=== PATIENT | male | born 1980 | race Caucasian/White ===

== ENCOUNTER → 2017-04-08 06:40 | Outpatient (CLI) | payer BC, SELFPAY ==
--- NOTE | 2017-04-08 06:44 | CT_ITS ---
STUDY: CT MAXILLOFACIAL SINUSES REASON FOR EXAM: Male, 36 years old. Sinus congestion. Headaches. RADIATION DOSAGE (If Supplied By Facility): CTDIvol = ( 33.06 ) mGy, DLP = ( 902.21 ) mGycm TECHNIQUE: The patient was scanned in a multi detector CT scanner. High resolution axial imaging was performed without the administration of intravenous contrast material. Sagittal and coronal images were reconstructed. Individualized dose optimization techniques were used for this CT. COMPARISON: None. FINDINGS: There are small benign-appearing submental lymph nodes. FRONTAL SINUSES: Normal aeration, without mucosal inflammatory disease. ETHMOIDAL SINUSES: Partial opacification of the ethmoid sinuses. MAXILLARY SINUSES: Mild mucosal thickening of the maxillary sinuses bilaterally. SPHENOIDAL SINUSES: Normal aeration, without mucosal inflammatory disease. There is patency of the bilateral maxillary infundibuli with normal uncinate processes, ethmoid bullae, and hiatus semilunaris. Normal bilateral middle turbinates. Normal bilateral inferior turbinates. There is a left sided nasal septal deviation with a left sided nasal septal spur. There is patency of the bilateral nasal airways. The visualized osseous structures are normal. The visualized bilateral orbital contents are normal. CT/Sinus/Facial Bone IMPRESSION: Partial opacification of the ethmoid sinuses. Mucosal thickening of the maxillary sinuses bilaterally. Electronically Signed: Christopher Samaniego MD at 11:01 EST Tel [phone], Service support ,
== END ==
PROVIDERS: Family Provider Internal Medicine; PCP Internal Medicine; Visit Provider Otolaryngology
DX: J32.9 Chronic sinusitis, unspecified (principal)
CPT/HCPCS: 70486

== ENCOUNTER 2020-01-26 12:48 | Emergency (ER) | payer BC, SELFPAY ==
[2020-01-26 12:49] VITALS: BP 146/104; PULSE 90; RESP 19; TEMP 36.3; O2SAT 100; BMI 31.3
--- NOTE | 2020-01-26 13:05 | EKG12_ITS ---
Test Reason : CP Blood Pressure : / mmHG Vent. Rate : 079 BPM Atrial Rate : 079 BPM P-R Int : 144 ms QRS Dur : 084 ms QT Int : 372 ms P-R-T Axes : 055 029 040 degrees QTc Int : 426 ms Normal sinus rhythm Normal ECG Confirmed by DEANNE IYER, KIERSTEN ([id number]), primer expeditor and drier ALTAGRACIA AMBROSIO ([id number]) on 01/30/2020 9:05:12 AM Referred By: JEIMY Confirmed By:KIERSTEN ALICEA MD
--- NOTE | 2020-01-26 13:05 | RAD_ITS ---
EXAM DESCRIPTION: PORTABLE AP CHEST CLINICAL HISTORY: 39 years Male, CP started 2 weeks ago, SOB, cold sweats -- h/o HTN CP started 2 weeks ago, SOB, cold sweats -- h/o HTN COMPARISON: Previous chest obtained on 06/05/2016 FINDINGS: The thorax is intact. The heart and mediastinum appear to be within normal limits. The lungs appear to be well areated without evidence of pneumonic consolidation or pleural effusion. RAD/Chest 1 View (Portable) IMPRESSION: Normal portable chest. Electronically Signed: Gregory Higgins, at 13:39 EST Tel , Service support ,
--- NOTE | 2020-01-26 13:14 | ED.VISSUMM ---
- ER Visit Summary Date of Service: 01/26/20 Chief Complaint: Chest pain History of Present Illness: The patient is a [address] Alexandra. He reports he has had intermittent chest pain for months. States that it lasts hours at a time. Is a sharp pain is 5-10 at worst and is pain-free currently. This is brought on by nothing including exertion. Is also relieved by nothing including rest. Does report that he gets mildly short of breath with this. He denies any associated nausea, vomiting, or diaphoresis. There is no radiation of the pain. Patient also reports that at times he is having a burning epigastric pain and feels nauseous. This comes and goes and is not at the same time as his chest pain. Seems to be worsened by drinking water. He denies any spicy food, tomato sauce, or alcohol intolerance. Physical Examination: Vitals: Stable. Afebrile. General: Well-nourished and well-developed. Head: Normocephalic atraumatic. Neck: Supple, no lymphadenopathy. No JVD. Nontender. Cardiovascular: Regular rate and rhythm. No murmurs. Respiratory: No respiratory distress. Clear to auscultation bilaterally. Abdominal: Soft, nontender, nondistended, normal bowel sounds. No guarding, rebound, or peritoneal signs. Back: Nontender. Extremities: Nontender, no edema. Skin: Normal color, no rash. Neurologic: Alert and oriented ?3. Cranial nerves II through XII are intact. Normal strength and sensation. Psych: Normal affect. Test Results: EKG is sinus at [address] changes. Is unchanged from May 2016. CBC is normal. Chem-7 shows a chloride of 108 and BUN of 21. Troponin is negative. Clinical Impression(s) from Imaging Studies Chest X-Ray 01/26/20 13:05 IMPRESSION: Normal portable chest. Electronically Signed: Gregory Higgins, at 13:39 EST Tel , Service support , Emergency Department Course and Treatment: Patient had an IV placed. He is given a liter normal saline. He was given aspirin and is resting comfortably. Treatment Plan: Patient will be discharged with instructions to double up on his Nexium for the next week. Follow-up his primary care physician in 3 to 5 days if not improving. Return to the emergency department for any worsening symptoms. Disposition: To home in improved and stable condition. Impression: 1. Atypical chest pain. 2. CONCEPCION score of 0. 3. Heart score of 2. This note was generated with [employer] dictation software. It may contain incorrect words, spelling, and punctuation that were not noted in review of the chart prior to signing ED Disposition - Plan for ED Patient: Instructions: ED Chest Pain Atypical Unkn Cause Referrals: Alex Alexandra MD [Primary Care Provider] - 3-5 Days if not improving
[2020-01-26] MEDS: Aspirin 81 MG TAB.CHEW 324 MG PO (13:22)
[2020-01-26] MEDS: 0.9% Normal Saline 1,000 ML 150 ML IV (13:24)
[2020-01-26 13:28] LABS: Absolute Lymphocyte Count 1.27 X10^3/uL (0.83-4.51); Absolute Neutrophil Count 4.4 X10^3/uL (2.0-7.7); Basophil# 0.03 X10^3/uL; Basophil% 0.5 % (0-1); Eosinophil# 0.11 X10^3/uL; Eosinophils% 1.7 % (0-5); Hematocrit 42.7 % (40-54); Hemoglobin 14.7 g/dL (13.0-16.5); Lymphocyte # 1.27 X10^3/ul (4.0); Mean Corp Hgb Conc 34.4 g/dL (32-36); Mean Corpuscular Hgb 29.6 pg (27.0-32.0); Mean Corpuscular Volume 85.9 fL (80-94); Mean Platelet Vol. 8.8 fl (6.2-12.0); Monocyte# 0.56 X10^3/uL; Monocyte% 8.8 % (0-10); NRBC Flagged by Analyzer 0 % (0-5); Neutrophil # 4.36 X10^3/uL (2.7-7.7); Neutrophil % 68.5 % (47-70); Platelet Count 273 K/mm3 (150-450); RBC Distribution Width CV 11.9 % (11.6-14.6); RBC Distribution Width SD 37.2 fl (35.1-43.9); Red Blood Count 4.97 M/mm3 (4.6-6.2); White Blood Count 6.4 K/mm3 (4.4-11.0)
[2020-01-26 13:43] LABS: Anion Gap 4 (5-15); BUN 21 mg/dL (7-18); BUN/Creat Ratio 16.8 RATIO (10-20); Chloride 108 mmol/L (98-107); Creatinine, Serum 1.25 mg/dL (0.70-1.30); EST Glomerular Filtration Rate 68 mL/min (>60); Est Glom Filt Rate - Afr Amer 83 mL/min (>60); Estimated Creatinine Clearance 81.92 ml/min; Glucose 90 mg/dL (74-106); Potassium 4.1 mmol/L (3.5-5.1); Sodium Level 141 mmol/L (136-145)
[2020-01-26 14:03] VITALS: BP 132/94; PULSE 83; RESP 21; O2SAT 98
== END 2020-01-26 14:06 | disposition home or self-care (01) ==
PROVIDERS: Emergency Provider Emergency Medicine; PCP Internal Medicine
DX: R07.89 Other chest pain (principal); I10 Essential (primary) hypertension
CPT/HCPCS: 71045; 80048; 84484; 85025; 93005; 96360; 99284; J7030; A4216

== ENCOUNTER 2020-07-12 11:00 | Outpatient (RCR) | payer BC, SELFPAY | END 2020-08-16 23:59 | LOC: IMMUN 11:00 | PROVIDERS: PCP Internal Medicine; Visit Provider Family Medicine | DX: Z23 Encounter for immunization (principal) | CPT/HCPCS: 0001A; 0002A; 91300 ==

== ENCOUNTER 2022-09-24 21:22 | Emergency (ER) | payer BC, SELFPAY ==
[2022-09-24 21:23] VITALS: BP 155/107; PULSE 87; RESP 16; TEMP 35.9; O2SAT 100; BMI 30.1
[2022-09-24 21:39] VITALS: O2SAT 97
--- NOTE | 2022-09-24 21:39 | EKG12_ITS ---
Test Reason : CP Blood Pressure : / mmHG Vent. Rate : 088 BPM Atrial Rate : 088 BPM P-R Int : 146 ms QRS Dur : 078 ms QT Int : 362 ms P-R-T Axes : 046 019 025 degrees QTc Int : 438 ms Normal sinus rhythm Normal ECG Confirmed by DEANNE IYER, KIERSTEN ([id number]), videotape editor ALTAGRACIA AMBROSIO ([id number]) on 09/25/2022 9:22:16 AM Referred By: MOLLY Confirmed By:KIERSTEN ALICEA MD
[2022-09-24] MEDS: Aspirin 81 MG TAB.CHEW 324 MG PO (21:48)
--- NOTE | 2022-09-24 21:52 | RAD_ITS ---
EXAM: XR CHEST, 1 VIEW CLINICAL INDICATION: chest pain TECHNIQUE: Frontal view of the chest. COMPARISON: Previous chest radiographs of 01/26/2020 and 06/05/2016. FINDINGS: LUNGS AND PLEURAL SPACES: Unremarkable. No consolidation or edema. No pneumothorax. No effusion. HEART: Unremarkable. Cardiac silhouette not enlarged. Normal pulmonary vasculature. MEDIASTINUM: Central airways and mediastinal contour are unremarkable. No mediastinal widening. BONES/JOINTS: No acute osseous abnormality. SOFT TISSUES: Unremarkable. RAD/Chest 1 View (Portable) IMPRESSION: No significant interval change. No radiographic evidence of acute cardiopulmonary disease. Electronically Signed: Max Lane MD at 22:03 EDT ,
[2022-09-24 22:04] LABS: Absolute Lymphocyte Count 1.42 X10^3/uL (0.83-4.51); Absolute Neutrophil Count 3.9 X10^3/uL (2.0-7.7); Basophil# 0.04 X10^3/uL; Basophil% 0.7 % (0-1); Eosinophil# 0.16 X10^3/uL; Eosinophils% 2.6 % (0-5); Hematocrit 41.6 % (40-54); Hemoglobin 14.1 g/dL (13.0-16.5); Lymphocyte # 1.42 X10^3/ul (0.83-4.51); Lymphocyte % 23.5 % (19-41); Mean Corp Hgb Conc 33.9 g/dL (32-36); Mean Corpuscular Hgb 29.7 pg (27.0-32.0); Mean Corpuscular Volume 87.6 fL (80-94); Mean Platelet Vol. 9.1 fl (6.2-12.0); Monocyte# 0.52 X10^3/uL; Monocyte% 8.6 % (0-10); NRBC Flagged by Analyzer 0 % (0-5); Neutrophil # 3.89 X10^3/uL (2.7-7.7); Neutrophil % 64.3 % (47-70); Platelet Count 241 K/mm3 (150-450); RBC Distribution Width CV 11.9 % (11.6-14.6); RBC Distribution Width SD 38.3 fl (35.1-43.9); Red Blood Count 4.75 M/mm3 (4.6-6.2); White Blood Count 6.1 K/mm3 (4.4-11.0)
[2022-09-24 22:23] VITALS: BP 135/92; PULSE 80; RESP 18; O2SAT 95
[2022-09-24 22:31] LABS: Anion Gap 9 (5-15); BUN 18 mg/dL (7-18); BUN/Creat Ratio 15.1 RATIO (10-20); Chloride 109 mmol/L (98-107); Creatinine, Serum 1.19 mg/dL (0.70-1.30); EST Glomerular Filtration Rate 71 mL/min (>60); Est Glom Filt Rate - Afr Amer 86 mL/min (>60); Glucose 104 mg/dL (74-106); Potassium 3.5 mmol/L (3.5-5.1); Sodium Level 142 mmol/L (136-145); Troponin-I HS (w/2H Reflex) 4 pg/mL (3.0-78.0)
[2022-09-24 23:00] VITALS: RESP 16
[2022-09-24 23:54] LABS: Reflex Troponin-HS? (from REC) Y
[2022-09-25] VITALS: BP 136/90; PULSE 77; RESP 16; O2SAT 97
[2022-09-25 00:36] LABS: Troponin-I HS 4 pg/mL (3.0-78.0)
[2022-09-25 00:42] VITALS: BP 136/90; PULSE 65; RESP 17; O2SAT 98
--- NOTE | 2022-09-25 01:15 | EDS_ITS ---
HPI History of Present Illness Chief Complaint: Chest Pain Informant: patient Onset/Context/Timing Onset: Today and Hours (Approximately 1.5) Activity at onset: sudden Timing: Continuous Quality: Positive for Tightness Location: Left Chest and - (Left arm) Worsened By: Nothing Relieved By: Nothing Associated Symptoms: Positive for Dyspnea, Lightheadedness and Acid Reflux; Negative for Nausea, Vomiting, Diaphoresis, Cough, Fever or Palpitations Narrative Narrative: Patient presents with chest pain that began approximately 1-1/2 hours prior to arrival. Patient states she was sitting and watching TV when this began. Patient states it has been constant. Patient describes it as a tightness. Patient also admits to some tightness in his left arm. Patient states his pain is mainly on the left side of his chest. Patient states nothing makes it better nothing makes it worse. Patient midst to some slight shortness of breath and lightheadedness with this. Patient states he has a history of esophageal reflux. Patient admits to drinking 6 beers tonight. CVD Risk Factors: Positive for Hypertension and Smoking; Negative for Diabetes, Hypercholesterolemia or Family History 1' </=55 PE Risk Factors: Negative for Recent Travel/Surgery, Recent Immobilization, Prior DVT or PE or Cancer [facility] Medical History (Updated 09/25/22 @ 01:[address] William Torres DO) Anxiety Hypertension Medical History no medical history Home Medications amlodipine 10 mg tablet 10 mg PO DAILY 01/26/20 [History Last Taken Unknown] bupropion HCl 150 mg tablet,12 hr sustained-release 150 mg PO DAILY 01/26/20 [History Last Taken Unknown] esomeprazole magnesium 40 mg capsule,delayed release 40 mg PO DAILY 01/26/20 [History Last Taken Unknown] losartan 25 mg tablet 25 mg PO DAILY 01/26/20 [History Last Taken Unknown] paroxetine HCl 30 mg tablet 30 mg PO DAILY 01/26/20 [History Last Taken Unknown] Allergy/AdvReac Type Severity Reaction Status Date / Time No Known Allergies Allergy Verified 09/24/22 21:23 Surgical History no surgical history no surgical history Social History (Updated 09/25/22 @ 01:[address] William Torres, DO) Smoking Status: Current every day smoker tobacco type: cigarettes alcohol intake: current ROS ROS ED Constitutional Constitutional ED: Denies chills or fever(s) Eyes Eyes: Reports blurry vision; Denies change in vision ENT ENT ED: Denies rhinorrhea or sore throat Cardiovascular Cardiovascular: Reports chest pain; Denies palpitations Respiratory/Chest Respiratory/Chest: Reports dyspnea; Denies cough Gastrointestinal Gastrointestinal: Denies abdominal pain, nausea or vomiting Genitourinary Genitourinary ED: Denies dysuria or hematuria Musculoskeletal Musculoskeletal: Reports neck pain; Denies back pain Integumentary Denies abscess or rash Neurologic Neurologic: Denies headache(s) or weakness Allergic/Immunologic Allergic/Immunologic ED: Denies mouth swelling or urticaria EXAM Physical Exam Const Vital Signs: 09/24/22 21:23 09/24/22 21:39 09/24/22 21:39 Temperature 96.6 F L Temperature Source Temporal Pulse Rate 87 Respiratory Rate 16 Respiratory Effort Normal Non-Labored Blood Pressure 155/107 H Blood Pressure Mean 123 Pulse Ox 100 97 Oxygen Delivery Method Room Air 09/24/22 22:23 09/24/22 23:00 09/25/22 00:00 Temperature Temperature Source Pulse Rate 80 77 Respiratory Rate 18 16 16 Respiratory Effort Blood Pressure 135/92 H 136/90 H Blood Pressure Mean 106 105 Pulse Ox 95 97 Oxygen Delivery Method Room Air Room Air 09/25/22 00:42 Temperature Temperature Source Pulse Rate 65 Respiratory Rate 17 Respiratory Effort Blood Pressure 136/90 H Blood Pressure Mean Pulse Ox 98 Oxygen Delivery Method Positive well nourished and well developed General Appearance ED: well developed and NAD HEENT normocephalic and atraumatic Eyes PERRL and EOMs intact bilaterally Neck supple and no JVD Chest Wall palpation of chest normal Resp normal respiratory effort and clear to auscultation bilaterally Effort and Inspection: Negative for respiratory distress Cardio regular rate, regular rhythm and no murmurs GI normal to inspection, nondistended, normoactive bowel sounds, soft to palpation, non-tender and non-distended Extremity normal to inspection General Extremety ED: Negative for edema or tenderness General Extremity: Negative for edema Neuro oriented x3, CN's II-XII intact bilaterally and no sensory deficits noted Sensorium / Orientation: awake and alert Motor Exam: strength 5/5 throughout Psych mental status grossly normal Heart Score History: Moderately Suspicious ECG: Normal Age: </= 45 years Risk Factors: 1 or 2 Risk Factors Troponin: </= Normal Limit Score: 2 MDM MDM MDM Narrative Medical decision making narrative: Differential diagnosis includes cardiac dysrhythmia, cardiac ischemia, electrolyte abnormality, pneumonia, pneumothorax, anxiety, gastroesophageal reflux, and alcohol intoxication. Patient is PERC negative and has a Wells score of 0. Therefore, I do not feel this is from a pulmonary embolism. EKG will be obtained to assess for cardiac dysrhythmia and cardiac ischemia. Chest x-ray will be obtained to assess for pneumonia and pneumothorax. CBC will be obtained to assess for leukocytosis and anemia. Basic metabolic profile will be obtained to assess for electrolyte abnormality and renal function. High- sensitivity troponin will be obtained to assess for cardiac ischemia. 2-hour repeat high-sensitivity troponin will be obtained to assess for ongoing cardiac ischemia. History & Record Review Discussion w/independent historian: Patient Additional record(s) reviewed:: Prior labs Lab Data Attestation: I reviewed the patient's lab results. Lab results narrative: CBC was reviewed and was within normal limits. Basic metabolic profile was reviewed and was within normal limits. High-sensitivity troponin was reviewed and was normal at 4. 2-hour repeat high-sensitivity troponin was reviewed and was normal at 4. Labs: Laboratory Results - last 24 hr 09/24/22 09/24/22 21:47 23:59 WBC 6.1 RBC 4.75 Hgb 14.1 Hct 41.6 MCV 87.6 MCH 29.7 MCHC 33.9 RDW Std Deviation 38.3 RDW Coeff of Darnell 11.9 Plt Count 241 MPV 9.1 Immature Gran % (Auto) 0.300 Neut % (Auto) 64.3 Lymph % (Auto) 23.5 [place] % (Auto) 8.6 Eos % (Auto) 2.6 Baso % (Auto) 0.7 Absolute Neuts (auto) 3.9 Absolute Lymphs (auto) 1.42 Nucleated RBC % 0 Sodium 142 Potassium 3.5 Chloride 109 H Carbon Dioxide 24.0 Anion Gap 9 BUN 18 Creatinine 1.19 Estim Creat Clear Calc 83.50 Est GFR (MDRD) Af Amer 86 Est GFR (MDRD) Non-Af 71 BUN/Creatinine Ratio 15.1 Glucose 104 Calcium 9.0 Troponin I High Sens 4 4 Radiography Diagnostic Testing: Clinical Impression(s) from Imaging Studies Chest X-Ray 09/24/22 21:52 IMPRESSION: No significant interval change. No radiographic evidence of acute cardiopulmonary disease. Electronically Signed: Max Lane MD at 22:03 EDT , Portable 1 view chest x-ray was obtained. On my independent interpretation, lung blackburn are clear. There is normal cardiac silhouette. Bony thorax is normal. There is no acute process noted. Radiologist also interpreted the x- ray and agrees. EKG Initial EKG: Attestation: I personally reviewed and interpreted this EKG as follows: Interpretation: Sinus Rhythm (88) and No Acute Injury Pattern Comments: EKG was obtained. On my independent interpretation, it showed a normal sinus rhythm with a rate of 88. CO interval, QRS interval, and QTc intervals were all normal. [place] was normal. There are no acute ST or T wave changes. Prior EKG tracings: available for review Prior: Unchanged (01/26/2020) Treatment and Re-Evaluation :: Patient was given aspirin. Patient was feeling better on reevaluation. Patient has a HEART score of 2. Patient was advised that this is low risk for acute cardiac event. Patient was advised of his findings. Patient was instructed to follow-up with his primary care physician in 5 to 7 days. Patient understood and was agreeable with the plan. All questions were answered. Discharge Plan Triage Chief Complaint: Chest Pain ED Provider: William Torres Dx/Rx/DC Orders Clinical Impression: Chest pain Instructions: ED Chest Pain, Uncertain Cause Prescriptions: No Action bupropion HCl 150 MG tablet sustained-release 12 hr 150 mg PO DAILY amlodipine 10 MG tablet 10 mg PO DAILY paroxetine HCl 30 MG tablet 30 mg PO DAILY esomeprazole magnesium 40 MG capsule,delayed release(DR/EC) 40 mg PO DAILY losartan 25 MG tablet 25 mg PO DAILY Patient Comments: TAKE 1 TABLET BY MOUTH EVERY DAY Primary Care Provider: Alex Alexandra Referrals: Alex Alexandra MD [Primary Care Provider] - 5-7 Days Disposition Disposition: Home, Self Care Discharge Date/Time: 09/25/22 00:58
== END 2022-09-25 00:58 | disposition home or self-care (01) ==
PROVIDERS: Emergency Provider Emergency Medicine; PCP Internal Medicine; Visit Provider Emergency Medicine
DX: R07.9 Chest pain, unspecified (principal); F17.210 Nicotine dependence, cigarettes, uncomplicated
CPT/HCPCS: 71045; 80048; 84484; 85025; 93005; 99285; A4216

== ENCOUNTER 2024-01-31 09:42 | Emergency (ER) | payer BC, SELFPAY ==
[2024-01-31 09:43] VITALS: BP 156/106; PULSE 82; RESP 16; TEMP 36.5; O2SAT 99; BMI 29.2
--- NOTE | 2024-01-31 09:49 | EKG12_ITS ---
Test Reason : CP Blood Pressure : */* mmHG Vent. Rate : 83 BPM Atrial Rate : 83 BPM P-R Int : 146 ms QRS Dur : 72 ms QT Int : 364 ms P-R-T Axes : 49 18 38 degrees QTcB Int : 427 ms Normal sinus rhythm Normal ECG Confirmed by Hernan Cordoba ([id number]), avid editor ALTAGRACIA AMBROSIO ([id number]) on 02/02/2024 5:53:23 AM Referred By: SANAZ/JAKE Confirmed By: Hernan Cordoba
--- NOTE | 2024-01-31 09:49 | RAD_ITS ---
STUDY: X-RAY CHEST REASON FOR EXAM: Male, 43 years old. Chest pain TECHNIQUE: PA and lateral views of the chest. COMPARISON: Comparison is made with prior study dated September 24, 2022. FINDINGS: EKG electrodes are seen. The lungs are clear and expanded. There is no demonstrated pleural abnormality. Normal size heart. Normal mediastinum and cholo. Normal visualized pulmonary arteries. Normal visualized aortic arch and descending thoracic aorta. Normal visualized thoracic spine. Normal visualized ribs, clavicles, and shoulders. There is no demonstrated abnormality of the visualized soft tissue structures of the upper abdomen. RAD/Chest PA and Lateral IMPRESSION: Normal x-ray examination of the chest. Electronically Signed: Christopher Samaniego MD at 11:08 EST ,
[2024-01-31 09:58] LABS: Absolute Lymphocyte Count 0.89 X10^3/uL (0.83-4.51); Absolute Neutrophil Count 4.6 X10^3/uL (2.0-7.7); Basophil# 0.03 X10^3/uL; Basophil% 0.5 % (0-1); Eosinophil# 0.05 X10^3/uL; Eosinophils% 0.8 % (0-5); Hematocrit 45.3 % (40-54); Hemoglobin 15.7 g/dL (13.0-16.5); Lymphocyte # 0.89 X10^3/ul (0.83-4.51); Lymphocyte % 14.7 % (19-41); Mean Corp Hgb Conc 34.7 g/dL (32-36); Mean Corpuscular Hgb 29.4 pg (27.0-32.0); Mean Corpuscular Volume 84.8 fL (80-94); Mean Platelet Vol. 8.5 fl (6.2-12.0); Monocyte# 0.45 X10^3/uL; Monocyte% 7.5 % (0-10); NRBC Flagged by Analyzer 0 % (0-5); Neutrophil % 76.2 % (47-70); Platelet Count 270 K/mm3 (150-450); RBC Distribution Width CV 11.5 % (11.6-14.6); RBC Distribution Width SD 35.2 fl (35.1-43.9); Red Blood Count 5.34 M/mm3 (4.6-6.2)
--- NOTE | 2024-01-31 10:13 | ED.VIS.CHEST ---
HPI History of Present Illness Chief Complaint: Chest Pain Narrative Narrative: Patient is a 43-year-old male with past medical history of anxiety, hypertension, GERD who presented to the emergency department with a chief complaint of fluttering feeling of his chest with pain rating to his left shoulder. Patient states that on he started having this fluttering feeling and not feeling well he states that he went home and laid down. He states that he called his doctor on Wednesday who advised him to come to the emergency department to be evaluated however patient states that he decided not, and things got better over the weekend. He states that today when he woke up again and he went to work he had this feeling he states that he was very clammy had some nausea associated with this therefore he came here for the valuation management. Patient denies any tobacco use, drug use he states that he does drink approximately 6 beers a day. Patient denies any recent travel history denies any history of blood clots denies any sick contacts. Patient states that he had a stress test about a year ago. He states that he has an appointment coming up with a narrow gauge engineer soon. [facility] Medical History GERD (gastroesophageal reflux disease) Anxiety Hypertension Home Medications ?Medication ?Instructions ?Recorded ?Last Taken ?Type amlodipine 10 mg tablet 10 mg PO DAILY 01/26/20 Unknown History bupropion HCl 150 mg tablet,12 hr 150 mg PO DAILY 01/26/20 Unknown History sustained-release esomeprazole magnesium 40 mg 40 mg PO DAILY 01/26/20 Unknown History capsule,delayed release losartan 25 mg tablet 25 mg PO DAILY 01/26/20 Unknown History paroxetine HCl 30 mg tablet 30 mg PO DAILY 01/26/20 Unknown History fluticasone propionate 50 2 spray intranasal DAILY 01/31/24 Unknown History mcg/actuation nasal spray,suspension sertraline 100 mg tablet 100 mg PO DAILY 01/31/24 Unknown History Allergy/AdvReac Type Severity Reaction Status Date / Time No Known Allergies Allergy Verified 01/31/24 09:43 Social History Smoking Status: Current every day smoker tobacco type: cigarettes alcohol intake: current ROS ROS ED ROS Narrative Constitutional: Denies any fevers, chills, headaches, lightness, dizziness Eyes: Denies changes double vision blurry vision Cardiovascular: Complains of chest pain and feeling of fluttering in his chest as noted above Respiratory: Denies coughing wheezing shortness of breath Abdomen: Denies abdominal pain nausea vomit diarrhea Neurological: Denies any numbness, weakness, tingling Musculoskeletal: Denies back pain Skin: Denies rashes or lesions EXAM Physical Exam Narrative Exam Narrative: General: Patient was lying in bed rest comfortably did not appear to be in acute distress Head: Atraumatic, normocephalic Eyes: PERRL bilateral, EOMI biotic no conjunctival injection noted Neck: Soft, supple, trachea midline Cardiovascular: Regular rate and rhythm no murmurs gallops rubs noted Respiratory: Clear to auscultation bilaterally Abdomen: No tenderness palpation, bowel sounds present x 4 Extremities: Radial pulses +2/4 in the bilateral upper extremities, +5/5 strength noted in the bilateral upper and lower extremities Neurological: Patient is following commands knew that he was at [facility] years 2023 Skin: Warm, dry, intact Const Vital Signs: 01/31/24 09:43 01/31/24 09:49 01/31/24 09:54 Temperature 97.7 F L Temperature Source Oral Pulse Rate 82 Respiratory Rate 16 Respiratory Effort Normal Blood Pressure 156/106 H Blood Pressure Mean 122 Pulse Ox 99 Oxygen Delivery Method Room Air Room Air 01/31/24 10:42 01/31/24 11:00 01/31/24 12:00 Temperature Temperature Source Pulse Rate 84 93 71 Respiratory Rate 16 16 16 Respiratory Effort Blood Pressure 137/99 H 134/102 H 133/98 H Blood Pressure Mean 111 112 109 Pulse Ox 98 98 98 Oxygen Delivery Method Room Air Room Air Room Air 01/31/24 13:00 Temperature Temperature Source Pulse Rate 73 Respiratory Rate 12 Respiratory Effort Blood Pressure 139/78 H Blood Pressure Mean 98 Pulse Ox 98 Oxygen Delivery Method Room Air MDM MDM MDM Narrative Medical decision making narrative: Patient is a 43-year-old male who presented to the emergency department chief complaint of chest comfort and fluttering in his chest. Patient will have a workup performed here on the differential diagnosis includes but not limited to ACS, stable angina, PE although with revised [place] score the patient is low risk, paroxysmal atrial fibrillation, paroxysmal SVT, paroxysmal atrial flutter. Once workup is obtained reviewed he will be reevaluated. Patient be given his home blood pressure medication as he is noted be hypertensive and states that he did not take his morning medications today. Patient's heart score of 3. Patient CBC reviewed and showed no evidence leukocytosis white blood cell count normal at 6.6, hemoglobin was 15.7, platelet count was noted to be normal at 270. Patient sodium normal at 138, potassium normal at 4.1, creatinine was 1.33 his baseline appears to be around 1.19 according to previous blood draw. Patient's troponin was normal at 5 with a delta troponin obtained normal at 5. Patient's EKG was reviewed as well and showed normal sinus rhythm with a rate of 88 beats per minutes. Patient's chest x-ray was reviewed by myself and by radiology which showed no acute cardiopulmonary processes. Called and discussed the case with planer tailer Dr. Cordoba who reviewed the patient's medical record and states that this has low probability of being cardiac since his symptoms were since . He is recommending him calling his primary care physician's office and ordering an a stress test. Patient will be placed on a cardiac Holter monitor as well. Did discuss this plan with the patient and he is agreeable this plan he would like to go home at this point time he was advised to return with worsening symptoms or any other concerns. Significant other at bedside is also agreeable with this plan all question concerns answered he is discharged home in stable condition. Lab Data Labs: Laboratory Results - last 24 hr 01/31/24 01/31/24 09:50 12:00 WBC 6.0 RBC 5.34 Hgb 15.7 Hct 45.3 MCV 84.8 MCH 29.4 MCHC 34.7 RDW Std Deviation 35.2 RDW Coeff of Darnell 11.5 L Plt Count 270 MPV 8.5 Immature Gran % (Auto) 0.300 Neut % (Auto) 76.2 H Lymph % (Auto) 14.7 L [place] % (Auto) 7.5 Eos % (Auto) 0.8 Baso % (Auto) 0.5 Absolute Neuts (auto) 4.6 Absolute Lymphs (auto) 0.89 Nucleated RBC % 0 Sodium 138 Potassium 4.1 Chloride 106 Carbon Dioxide 26.0 Anion Gap 6 BUN 22 H Creatinine 1.33 H Estim Creat Clear Calc 81.86 Est GFR (MDRD) Af Amer 75 Est GFR (MDRD) Non-Af 62 BUN/Creatinine Ratio 16.5 Glucose 99 Calcium 9.4 Troponin I High Sens 5 5 Radiography Diagnostic Testing: Clinical Impression(s) from Imaging Studies Chest X-Ray 01/31/24 09:49 IMPRESSION: Normal x-ray examination of the chest. Electronically Signed: Christopher Samaniego MD at 11:08 EST , Discharge Plan Triage Chief Complaint: Chest Pain ED Provider: Brad Zamora Dx/Rx/DC Orders Clinical Impression: Chest pain Prescriptions: No Action bupropion HCl 150 MG tablet sustained-release 12 hr 150 mg PO DAILY amlodipine 10 MG tablet 10 mg PO DAILY paroxetine HCl 30 MG tablet 30 mg PO DAILY esomeprazole magnesium 40 MG capsule,delayed release(DR/EC) 40 mg PO DAILY losartan 25 MG tablet 25 mg PO DAILY Patient Comments: TAKE 1 TABLET BY MOUTH EVERY DAY sertraline 100 mg tablet 100 mg PO DAILY fluticasone propionate 50 mcg/actuation spray,suspension 2 spray INTRANASAL DAILY Primary Care Provider: Alex Alexandra Referrals: Alex Alexandra MD [Primary Care Provider] - Activity Restrictions/Additional Instructions: Wear Holter monitor as prescribed. Follow-up with your primary care physician and call their office for a stress test. Return with worsening symptoms or any other concerns. Print Language: Arabic Disposition Disposition: Home, Self Care
[2024-01-31] MEDS: Losartan Potassium 25 MG Tablet PO (10:31)
[2024-01-31] MEDS: amLODIPine 10 MG Tablet PO (10:32)
[2024-01-31 10:42] VITALS: BP 137/99; PULSE 84; RESP 16; O2SAT 98
[2024-01-31 10:42] LABS: Anion Gap 6 (5-15); BUN 22 mg/dL (7-18); BUN/Creat Ratio 16.5 RATIO (10-20); Calcium,Total 9.4 mg/dL (8.5-10.1); Chloride 106 mmol/L (98-107); Creatinine, Serum 1.33 mg/dL (0.70-1.30); EST Glomerular Filtration Rate 62 mL/min (>60); Est Glom Filt Rate - Afr Amer 75 mL/min (>60); Estimated Creatinine Clearance 81.86 ml/min; Glucose 99 mg/dL (74-106); Potassium 4.1 mmol/L (3.5-5.1); Sodium Level 138 mmol/L (136-145); Troponin-I HS (w/2H Reflex) 5 pg/mL (3.0-78.0)
[2024-01-31 11:00] VITALS: BP 134/102; PULSE 93; RESP 16; O2SAT 98
[2024-01-31 11:54] LABS: Reflex Troponin-HS? (from REC) Y
[2024-01-31 12:00] VITALS: BP 133/98; PULSE 71; RESP 16; O2SAT 98
[2024-01-31 12:41] LABS: Troponin-I HS 5 pg/mL (3.0-78.0)
[2024-01-31 13:00] VITALS: BP 139/78; PULSE 73; RESP 12; O2SAT 98
[2024-01-31 13:54] VITALS: BP 139/75; PULSE 74; RESP 16; TEMP 36.8; O2SAT 99
== END 2024-01-31 13:55 | disposition home or self-care (01) ==
PROVIDERS: Emergency Provider Emergency Medicine; PCP Internal Medicine; Visit Provider Emergency Medicine
DX: R07.9 Chest pain, unspecified (principal)
CPT/HCPCS: 71046; 80048; 84484; 85025; 93005; 99285; A4216

== ENCOUNTER → 2024-01-31 | Outpatient (CLI) | payer BC, SELFPAY | END | disposition home or self-care (01) | LOC: PSN 13:15 | PROVIDERS: PCP Internal Medicine; Visit Provider Emergency Medicine | DX: R00.2 Palpitations (principal) | CPT/HCPCS: 93005; 93225; 93226 ==

== ENCOUNTER → 2024-04-13 | Outpatient (CLI) | payer BC, SELFPAY ==
--- NOTE | 2024-04-13 12:32 | CT_ITS ---
EXAM: LIMITED CHEST CT CARDIAC ONLY CLINICAL HISTORY: Family history of cardiac disease. COMPARISON: None. TECHNIQUE: Multiple axial tomographic images were obtained following intravenous contrast administration. Axial imaging was obtained. FINDINGS: No significant coronary artery calcification is seen. The lungs are clear. Fatty infiltration of the liver. CT/Limited Chest CT Cardiac Only IMPRESSION: No coronary artery calcification is seen. Fatty infiltration of the liver. Reading Location: [id number]
[2024-04-13 12:47] VITALS: BP 160/124; PULSE 63; RESP 16; TEMP 35.7; O2SAT 100; BMI 30.5
[2024-04-13 13:01] VITALS: BP 160/124; PULSE 63
[2024-04-13] MEDS: Nitroglycerin SL (ED/IMG/CATH) 0.4 MG TABLET SL (13:01)
[2024-04-13 13:07] VITALS: BP 139/100; PULSE 64; RESP 14; O2SAT 100
--- NOTE | 2024-04-13 17:34 | CCTA.WCONT ---
CCTA w/Cont Coronary Arteries Date of Study:: 04/13/24 Chest pain Coronary Calcium Scoring: High-resolution Computed Tomographic imaging of the chest was performed on [04/13/24], with particular attention paid to the coronary arteries. Intravenous contrast agent was administered per protocol and images reconstructed and displayed. LEFT MAIN CORONARY ARTERY: Arises from the left coronary cusp with no stenosis noted. [] LEFT ANTERIOR DESCENDING CORONARY ARTERY:Arises from the LM coronary artery and courses towards the apex of the ventricle with no stenosis present. [] LEFT CIRCUMFLEX CORONARY ARTERY:Arises from the LM coronary artery and courses in the AV groove with no significant stenosis present. [] RIGHT CORONARY ARTERY: Arises from the right coronary cusp and courses and gives of a posterior descending artery posterolateral artery. No significant atherosclerotic plaquing or stenosis is present. [ CORONARY CALCIUM SCORE: Conclusion: CT angiogram with no significant atherosclerotic plaquing or stenosis present. []
== END | disposition home or self-care (01) ==
LOC: CT 12:28
PROVIDERS: PCP Internal Medicine; Referring Provider Internal Medicine Cardiovascular Disease; Visit Provider Internal Medicine Cardiovascular Disease
DX: R07.9 Chest pain, unspecified (principal)
CPT/HCPCS: 75574; 76380; Q9967